=== PATIENT | male | born 1950 | race Caucasian/White ===

== ENCOUNTER 2017-08-19 07:12 | Outpatient (CLI) | payer MEDICARE, OTHER ==
[2017-08-19] MEDS ORDERED: ISOVUE-370 76%-LOCM 1 ML ONE (11:00)
== END 2017-08-19 07:13 | disposition home or self-care (01) ==
LOC: BICCT 07:12
DX: I70.201 Unspecified atherosclerosis of native arteries of extremities, right leg (principal); M79.662 Pain in left lower leg; K80.20 Calculus of gallbladder without cholecystitis without obstruction; N20.0 Calculus of kidney
CPT/HCPCS: 75635

== ENCOUNTER 2018-02-04 13:18 | Outpatient (CLI) | payer MEDICARE, OTHER ==
--- NOTE | 2018-02-04 14:26 | RAD ---
TWO VIEW CHEST: Indication: Dyspnea. FINDINGS: Lungs are hyperinflated. There is mild prominence of the cardiac silhouette. No vascular congestion. Linear densities at the left lateral lung zone may relate to scar or volume loss. There is mild osseo us degenerative change. IMPRESSION: 1. Hyperinflated lungs indicating COPD. Correlate clinically. 2. Mild left basilar atelectasis versus scar. 3. Mild prominence of the cardiac silhouette. POS: [facility]
== END 2018-02-04 13:19 | disposition home or self-care (01) ==
LOC: RAD 13:18
PROVIDERS: ATTEND Internal Medicine Pulmonary Disease
DX: R06.00 Dyspnea, unspecified (principal); R91.8 Other nonspecific abnormal finding of lung field; J44.9 Chronic obstructive pulmonary disease, unspecified
CPT/HCPCS: 71046

== ENCOUNTER 2018-02-06 19:30 | Outpatient (CLI) | payer MEDICARE, OTHER | END 2018-02-06 19:31 | disposition home or self-care (01) | LOC: SLEEPLAB 19:30 | PROVIDERS: ATTEND Internal Medicine Pulmonary Disease | DX: G47.33 Obstructive sleep apnea (adult) (pediatric) (principal); R06.83 Snoring; G47.00 Insomnia, unspecified; G47.10 Hypersomnia, unspecified; I10 Essential (primary) hypertension; Z68.42 Body mass index [BMI] 45.0-49.9, adult | CPT/HCPCS: 95811 ==

== ENCOUNTER 2018-07-17 20:13 | Inpatient (IN) | payer MEDICARE, OTHER ==
[~2018-07-17 20:13] MED LIST: ISOVUE-370 76%-LOCM 1 ML ONE
--- NOTE | 2018-07-17 21:50 | CT ---
CT ABDOMEN AND PELVIS WITH IV CONTRAST: 07/17/18 HISTORY: Right sided abdominal pain. FINDINGS: Comparison made with the CTA of 08/19/17. The lung bases are unremarkable. There is fatty infiltration of the liver without focal mass or abno rmal biliary ductal dilatation. An 18 mm calcified calculus in the gallbladder is again seen. The spl een, pancreas, right adrenal gland are normal. There is a tiny nonobstructing calculus in the right k idney. There is a stable 3.5 cm cyst in the inferior pole of the left kidney. A stable 18 mm left ad renal nodule is seen. No free air, free fluid, or lymphadenopathy seen in the abdomen or pelvis. The small bowel loops are not abnormally dilated. There is a small fat containing umbilical hernia. There is a normal appearin g appendix. Mild prostatic enlargement is seen. There are vascular calcifications without evidence of aneurysmal dilatation of the abdominal aorta. There are degenerative changes in the spine. Small fat containing inguinal hernia is present. There is mild colonic diverticulosis without diverti culitis. IMPRESSION: 1. Fatty liver. 2. Cholelithiasis. 3. Tiny nonobstructing right renal calculus. 4. Left renal cyst. 5. No evidence of appendicitis. 6. Mild colonic diverticulosis. POS: [facility]
[2018-07-17] MEDS ORDERED: Ondansetron PF 4 MG/2 ML Vial IVP PRN (22:42)
[2018-07-17] MEDS ORDERED: Ondansetron ODT 4 MG TAB PO PRN (22:42)
[2018-07-17] MEDS ORDERED: hydrALAZINE 20 MG/ML VIAL SLOW IVP PRN (22:42)
[2018-07-17] MEDS ORDERED: Morphine 2 MG/ML SYRINGE SLOW IVP PRN (22:42)
[2018-07-17] MEDS ORDERED: Ketorolac Tromethamine 30 MG/ML VIAL IVP SCH (23:00)
[2018-07-17] MEDS ORDERED: Acetaminophen 1,000 MG in Premix Bag 1 BAG IVPB SCH (23:00)
[2018-07-18] MEDS: Lactated Ringer's 1,000 ML IV SCH ×3 (00:01→18:01)
[2018-07-18] MEDS: Morphine 4 MG/ML VIAL SLOW IVP PRN ×2 (00:03→08:28)
[2018-07-18 03:02] VITALS: BMI 49.3
[2018-07-18 06:12] LABS: ALT (SGPT) 208 U/L (8-55); AST (SGOT) 287 U/L (5-34); Albumin 3.6 g/dL (3.4-4.8); Alkaline Phosphatase 70 U/L (40-150); Anion Gap 11 mmol/L (10-20); BUN (Urea Nitrogen) 19 mg/dL (8.4-25.7); Bilirubin, Total 2.6 mg/dL (0.2-1.2); Calc. Creatinine Clearance 107 mL/min (70-130); Calcium 9.3 mg/dL (7.8-10.44); Carbon Dioxide 28 mmol/L (23-31); Chloride 104 mmol/L (98-107); Estimated GFR-MDRD 55; Globulin 2.8 g/dL (2.4-3.5); Glucose 134 mg/dL (80-115); Potassium 3.9 mmol/L (3.5-5.1); Protein, Total 6.4 g/dL (5.8-8.1); Sodium 139 mmol/L (136-145)
--- NOTE | 2018-07-18 06:37 | HP ---
HISTORY OF PRESENT ILLNESS: Mr. Combs is a 67-year-old male patient followed by Dr. Ellis Barnes. The patient is morbidly obese, has sleep apnea, uses CPAP at home. He weighs 138 kg. He presents to the hospital because of upper abdominal discomfort. He was found to have cholecystitis and cholelithiasis. He is admitted to the hospital, planning for laparoscopic cholecystectomy tomorrow. ALLERGIES: CODEINE, HYDROCODONE, ANTIHISTAMINES. TOBACCO: None. ALCOHOL: Socially. MEDICATIONS: 1. Hydrochlorothiazide 12.5 mg a day. 2. Losartan 50 mg a day. 3. Aspirin 81 mg a day. 4. Xanax 0.5 mg a day. PAST MEDICAL HISTORY: Hypertension, sleep apnea, obesity. The patient has had screening colonoscopy 4-5 years ago and states that he is due for another one again, although there were no significant findings. The patient has had a cardiac catheterization a month ago in [place], that was normal. Echocardiogram was normal he has had a tonsillectomy, right eye surgery, and umbilical hernia repair, he thinks with mesh. He had a recurrence a year and a half later of his umbilical hernia when he was lifting a heavy object. He asked if this can be repaired during his cholecystectomy. PAD, the patient had a balloon angioplasty of his right superficial femoral artery in the past. REVIEW OF SYSTEMS: Ten-point noncontributory except as noted above. PHYSICAL EXAMINATION: VITAL SIGNS: Weight 138 kg, blood pressure 138/77, heart rate 76, respiratory rate 18, temperature 98 degrees. HEAD, EYES, EARS, NOSE and THROAT: Unremarkable. LUNGS: Clear to auscultation. CARDIAC: Regular rate and rhythm. No murmur or gallop. ABDOMEN: Tender in his right upper quadrant with guarding and rebound. Positive Lawton's. Umbilical hernia present. Rotund, obese abdomen. EXTREMITIES: Unremarkable. Palpable pedal pulses. DIAGNOSTIC DATA: CAT scan of the abdomen and pelvis reveals that he is obese, fatty liver, cholelithiasis, nonobstructing right renal calculus with renal cyst, colonic diverticulosis. LABORATORY DATA: White count 11, hemoglobin 14, platelet count 271,000. Sodium 139, potassium 4.3, carbon dioxide 30, BUN 17, and creatinine 1.23, bilirubin 1.5, AST and ALT 160 and 64 respectively, alkaline phosphatase 67, lipase normal. ASSESSMENT/PLAN: 1. Cholecystitis and cholelithiasis. We recommend laparoscopic video cholecystectomy. Risks of infection, bleeding, and reoperation discussed, he consents. 2. Umbilical hernia. He desires repair during the same anesthetic. I have informed him that I cannot use mesh in this repair because of his obesity and recurrence. He has had increased risk for another recurrence, but he wished to proceed with umbilical hernia repair without mesh. We will plan this during the laparoscopic cholecystectomy. 3. Sleep apnea. 4. Morbid obesity. 5. Hypertension. Job ID: [id number]
[2018-07-18] MEDS: Ketorolac Tromethamine 30 MG/ML VIAL IVP SCH ×3 (07:03→18:02)
[2018-07-18] MEDS: Acetaminophen 1,000 MG in Premix Bag 1 BAG IVPB SCH ×3 (07:03→18:01)
[2018-07-18] MEDS ORDERED: Prevnar 13-Val Conj/PF 0.5 ML SYRINGE IM ONE (09:00)
[2018-07-18] MEDS ORDERED: Levofloxacin 500 mg/D5W 100 ml Premix Bag ONE (16:03)
[2018-07-18] MEDS ORDERED: Midazolam HCl 2 mg/2 ml Vial ONE (16:50)
[2018-07-18] MEDS ORDERED: Bupivacaine/Epinephrine 0.25% 30 ML VIAL ONE (16:51)
[2018-07-18] MEDS ORDERED: Iothalamate Meglumine 60% 50 ML VIAL FS ONE (16:51)
[2018-07-18] MEDS ORDERED: Fentanyl 100 MCG/2 ML VIAL ONE ×2 (17:04→18:57)
[2018-07-18] MEDS ORDERED: Morphine Sulfate 2 MG/ML SYRINGE SLOW IVP PRN (17:10)
[2018-07-18] MEDS ORDERED: Promethazine HCl 25 MG/ML VIAL IM PRN (17:10)
[2018-07-18] MEDS ORDERED: Promethazine HCl 25 MG/ML VIAL SLOW IVP PRN (17:10)
[2018-07-18] MEDS ORDERED: Ondansetron HCl/PF 4 MG/2 ML Vial IVP PRN (17:10)
[2018-07-18] MEDS ORDERED: HYDROmorphone 2 MG/ML VIAL SLOW IVP PRN (17:10)
[2018-07-18] MEDS ORDERED: Meperidine HCl/PF 25 MG/ML VIAL SLOW IVP PRN (17:10)
[2018-07-18] MEDS ORDERED: PACU-Morphine 4MG/ML VIAL SLOW IVP PRN (17:10)
[2018-07-18] MEDS ORDERED: Dexamethasone 20 MG/5 ML VIAL ONE (17:14)
[2018-07-18] MEDS ORDERED: Ondansetron PF 4 MG/2 ML Vial ONE (17:14)
[2018-07-18] MEDS ORDERED: Metoclopramide HCl 10 MG/2 ML VIAL ONE (17:14)
[2018-07-18] MEDS ORDERED: Glycopyrrolate 0.2 MG/ML 5 ML SYRINGE ONE (17:14)
[2018-07-18] MEDS ORDERED: Rocuronium Bromide 10 MG/ML (10ML VIAL) ONE (17:14)
[2018-07-18] MEDS ORDERED: PROPOFOL 200 MG/20 ML VIAL ONE (17:14)
[2018-07-18] MEDS ORDERED: Lidocaine 1% PF 5 ML VIAL ONE (17:14)
[2018-07-18] MEDS ORDERED: Acetaminophen 500 MG TAB PO PRN (18:49)
[2018-07-18] MEDS ORDERED: traMADol HCl 50 MG TAB PO PRN (18:49)
[2018-07-18] MEDS ORDERED: Ibuprofen 600 MG TAB PO PRN (18:49)
[2018-07-18] MEDS ORDERED: ALPRAZolam 0.5 MG TAB PO PRN (18:52)
[2018-07-18] MEDS: traMADol HCl 50 MG TAB PO PRN (20:05)
[2018-07-18] MEDS ORDERED: Enoxaparin Sodium 40 MG/0.4 ML SYRINGE SC SCH (21:00)
--- NOTE | 2018-07-19 00:50 | OP ---
DATE OF PROCEDURE: 07/18/2018 POSTOPERATIVE DIAGNOSES: Chronic cholecystitis and cholelithiasis, fatty liver, morbid obesity, sleep apnea, and recurrent umbilical hernia. POSTOPERATIVE DIAGNOSES: Chronic cholecystitis and cholelithiasis, fatty liver, morbid obesity, sleep apnea, and recurrent umbilical hernia. PROCEDURE PERFORMED: Laparoscopic video cholecystectomy, normal intraoperative cholangiogram (bilirubin 1.5, mildly elevated transaminases, probably secondary to fatty liver), fluoroscopy use, repair of recurrent umbilical hernia without mesh. ANESTHESIA: General, local 0.5% Marcaine with epinephrine 30 mL. DESCRIPTION OF PROCEDURE: The patient was taken to the operating room, where under general anesthesia, abdomen was prepared with ChloraPrep and draped in routine fashion. Local anesthetic was infiltrated in the skin and subcutaneous tissue about each port site. Infraumbilical incision was made and pneumoperitoneum to 15 mmHg obtained with a Veress needle, replaced with a 5 port, video laparoscope inserted. Right subxiphoid incision was made and 11 port placed, right subcostal incision was made, midclavicular and anterior axillary lines, a 5 port was placed. Liver was fatty, but not cirrhotic. Gallbladder wall was thickened and fatty. Fundus was grasped at the cephalad. Visualization was difficult, but with extreme positioning, infundibulum grasped and reflected laterally. Cystic artery and duct were carefully dissected free. Cystic duct clamped, clipped on the gallbladder side. An opening made in the cystic duct. Cholangiocatheter inserted. Cholangiograms obtained with fluoroscopy. After administering glucagon intravenously and cholangiograms revealed free flow of contrast into the duodenum without filling defects in the common hepatic, common bile, left and right hepatic ducts. Cholangiocatheter removed. Cystic duct double clipped proximally and divided, gallbladder dissected free. Cystic artery identified, doubly clipped, divided. Gallbladder dissected free from liver bed obtaining good hemostasis in the liver bed prior to division of the final peritoneal attachments. Gallbladder and contents and large stone removed, submitted to Pathology. Good hemostasis ensured with the cautery. Irrigant and pneumoperitoneum evacuated. All ports removed, all upper subcostal incisions were approximated with continuous subcutaneous suture of 4-0 Monocryl. Infraumbilical incision lengthened and flaps created superiorly and inferiorly. An umbilical hernia defect was larger than expected, it was about 4 cm. The fascial edges identified, dissected free and [id number] type approximation performed with interrupted sutures of 0 PDS pop-offs. Subcutaneous tissue was approximated with 3-0 Monocryl. Umbilicus tacked to the fascia, closed with 3-0 Monocryl. Skin approximated with continuous subcutaneous suture of 4-0 Monocryl and Watch[place] glue applied. The patient tolerated the procedure well. Job ID: [id number]
[2018-07-19] MEDS: traMADol HCl 50 MG TAB PO PRN (02:06)
--- NOTE | 2018-07-19 02:46 | DIS ---
DATE OF ADMISSION: 07/17/2018 DATE OF DISCHARGE: 07/18/2018 DISCHARGE DIAGNOSES: 1. Recurrent umbilical hernia. 2. Cholecystitis. 3. Cholelithiasis. 4. Morbid obesity. 5. Sleep apnea. 6. Fatty liver. 7. History of cardiac catheterization, normal in [place] a few weeks ago. HOME MEDICATION: 1. Losartan 50 mg a day. 2. Hydrochlorothiazide 12.5 mg a day. 3. Aspirin 81 mg a day. 4. Alprazolam 0.5 mg p.r.n. DISCHARGE MEDICATIONS: Resume home medications. 1. Tylenol p.r.n. pain. 2. Motrin p.r.n. pain. 3. Ultram p.r.n. pain. ALLERGIES: CODEINE AND HYDROCODONE. HISTORY: A 67-year-old male patient presented to the emergency room. CAT scan revealed cholelithiasis. Previous CAT scan had substantiated this in October. Patient had had cardiac catheterization in [place] recently. An echocardiogram was done at [facility]. The patient's wears a CPAP at home. He is morbidly obese. He reports having had an umbilical hernia repair in the past with mesh but had recurrence of when he is lifting something heavy. He has unrelenting right upper quadrant pain and epigastric pain. His bilirubin is slightly elevated. Bile duct not dilated on CAT scan. Patient was hospitalized overnight, received IV antibiotics and underwent laparoscopic video cholecystectomy and cholangiograms that were normal. Recurrent umbilical hernia repair undertaken with absorbable sutures without mesh. Postop, he did well and discharged home with the above regimen. Follow medically in 2 to 3 weeks. No lifting over 25 pounds for 8 weeks. Diet and activity as tolerated. Job ID: [id number]
[2018-07-19 08:00] VITALS: BP 136/78; TEMP 99.3
[2018-07-19] MEDS ORDERED: Hydrochlorothiazide 25 MG TAB PO SCH (09:00)
[2018-07-19] MEDS ORDERED: Losartan 25 MG TAB PO SCH (09:00)
[2018-07-19] MEDS ORDERED: Aspirin 81 mg Enteric Coated Tablet PO SCH (09:00)
--- NOTE | 2018-07-19 09:25 | RAD ---
OPERATIVE CHOLANGIOGRAM: Date: 07/18/18 Two fluoroscopic images are presented from OR. INDICATION: Intraoperative imaging during cholecystectomy procedure to evaluate bile ducts. FINDINGS/IMPRESSION: Common duct is opacified. No definite filling defect is identified. The ampulla and spill into the du odenum is not definitely confirmed on this study. POS: [facility]
== END 2018-07-19 08:22 | disposition home or self-care (01) | DRG 418 ==
LOC: ERS 20:13 → SURG B 21:36
PROVIDERS: ADMIT Specialist; ATTEND Specialist
PROC: 0FT44ZZ Resection of Gallbladder, Percutaneous Endoscopic Approach (ICD-10-PCS; principal; 2018-07-17)
PROC: 0WQF0ZZ Repair Abdominal Wall, Open Approach (ICD-10-PCS; 2018-07-17)
PROC: BF10YZZ Fluoroscopy of Bile Ducts using Other Contrast (ICD-10-PCS; 2018-07-17)
DX: K80.44 Calculus of bile duct with chronic cholecystitis without obstruction (principal); Z68.42 Body mass index [BMI] 45.0-49.9, adult; K42.9 Umbilical hernia without obstruction or gangrene; E66.01 Morbid (severe) obesity due to excess calories; K76.0 Fatty (change of) liver, not elsewhere classified; I10 Essential (primary) hypertension; J44.9 Chronic obstructive pulmonary disease, unspecified; F41.9 Anxiety disorder, unspecified; G47.30 Sleep apnea, unspecified; Z88.5 Allergy status to narcotic agent; Z88.8 Allergy status to other drugs, medicaments and biological substances; Z79.82 Long term (current) use of aspirin; Z79.899 Other long term (current) drug therapy; Z79.01 Long term (current) use of anticoagulants; Z99.89 Dependence on other enabling machines and devices; Z90.89 Acquired absence of other organs; Z98.890 Other specified postprocedural states
CPT/HCPCS: 36415; 47532; 74177; 80053; 88304; 90471; 90670; 94660; G0009; J0131; J1100; J1610; J1650; J1885; J1956; J2001; J2250; J2270; J2405; J2704; J2765; J3010; Q9961; Q9966

== ENCOUNTER 2018-11-09 11:00 | Outpatient (CLI) | payer MEDICARE, OTHER ==
--- NOTE | 2018-11-09 11:21 | RAD ---
RADIOGRAPH CHEST 2 VIEWS: DATE: 11/09/2018 HISTORY: 67-year-old male with dyspnea FINDINGS: There is no airspace density, pulmonary edema, pleural effusion, pneumothorax, or cardiomegaly. IMPRESSION: No acute cardiopulmonary findings.
== END 2018-11-09 11:01 | disposition home or self-care (01) ==
LOC: RAD 11:00
PROVIDERS: ATTEND Internal Medicine Pulmonary Disease
DX: R06.00 Dyspnea, unspecified (principal)
CPT/HCPCS: 71046

== ENCOUNTER 2019-04-13 14:02 | Outpatient (CLI) | payer MEDICARE ==
--- NOTE | 2019-04-13 14:46 | RAD ---
CHEST 2 VIEWS: Date: 04/13/2019 COMPARISON: 11/09/18. HISTORY: Shortness of breath. FINDINGS: Mild increased linear interstitial density with pulmonary hyperinflation, stable. Stable heart and me diastinal contours. No pneumothorax, pleural fluid, focal consolidation, or alveolar edema. IMPRESSION: No acute findings. POS: [facility]
== END 2019-04-13 14:03 | disposition home or self-care (01) ==
LOC: RAD 14:02
PROVIDERS: ATTEND Internal Medicine Pulmonary Disease
DX: R06.00 Dyspnea, unspecified (principal)
CPT/HCPCS: 71046

== ENCOUNTER 2020-04-20 14:15 | Outpatient (CLI) | payer MEDICARE, OTHER ==
--- NOTE | 2020-04-20 14:40 | RAD ---
EXAM: Chest PA and lateral: HISTORY: Dyspnea COMPARISON: 11/15/2019 FINDINGS: Heart: Normal cardiac silhouette Aorta: Atherosclerosis Pulmonary vessels: Normal Costophrenic angles: Costophrenic angles are clear. Lungs: No consolidation or masses. Chronic lung parenchymal changes Pneumothorax: No pneumothorax Osseous structures: No osseous abnormalities IMPRESSION: No acute cardiopulmonary process.
== END 2020-04-20 14:16 | disposition home or self-care (01) ==
LOC: BICRAD 14:15
PROVIDERS: ATTEND Internal Medicine Pulmonary Disease
DX: R06.00 Dyspnea, unspecified (principal)
CPT/HCPCS: 71046

== ENCOUNTER 2022-05-23 09:32 | Outpatient (CLI) | payer MEDICARE, OTHER | END 2022-05-23 09:33 | disposition home or self-care (01) | LOC: RAD 09:32 | PROVIDERS: ATTEND Internal Medicine Critical Care Medicine | DX: R06.00 Dyspnea, unspecified (principal) | CPT/HCPCS: 71046 ==

== ENCOUNTER 2023-03-26 07:34 | Outpatient (CLI) | payer MEDICARE ==
[2023-03-26] MEDS ORDERED: Iopamidol-370 76% 500 ML MDV (1 ML CHARGE) ONE (09:03)
== END 2023-03-26 07:35 | disposition home or self-care (01) ==
LOC: BICCT 07:34
PROVIDERS: ATTEND Family Medicine
DX: R10.84 Generalized abdominal pain (principal); K59.00 Constipation, unspecified; N20.0 Calculus of kidney; N28.89 Other specified disorders of kidney and ureter; R19.5 Other fecal abnormalities
CPT/HCPCS: 74177

== ENCOUNTER 2024-03-29 08:04 | Outpatient (CLI) | payer MEDICARE, OTHER | END 2024-03-29 08:05 | disposition home or self-care (01) | LOC: RAD 08:04 | PROVIDERS: ATTEND Internal Medicine Critical Care Medicine | DX: R06.00 Dyspnea, unspecified (principal) | CPT/HCPCS: 71046 ==

== ENCOUNTER 2025-03-15 07:56 | Outpatient (CLI) | payer MEDICARE | END 2025-03-15 07:57 | disposition home or self-care (01) | LOC: RAD 07:56 | PROVIDERS: ATTEND Internal Medicine Critical Care Medicine | DX: R06.00 Dyspnea, unspecified (principal) | CPT/HCPCS: 71046 ==